=== PATIENT | female | born 1960 | race Caucasian/White ===

== ENCOUNTER 2017-01-30 18:19 | Emergency (ER) | payer MEDICARE, MEDICAID ==
[~2017-01-30] VITALS: Ht 160 cm; Wt 145.3 kg
[~2017-01-30 18:19] MED LIST: ACID1TAB3 PO; ALBU2.5V NEB; ALBU6.7H INH; ALBU90AE INH; AMOX1TAB64 PO; ASPI-496 PO; ATEN25TA PO; AZEL137S4 NAS; BUDE10.2 INH; BUDE8.43 NS; BUPR75TA6 PO; CALC-451 PO; CHOL500050 PO; FERR324T13 PO; FLUT16SP2 INH; FURO20TA3 PO; HYDR-2443 PO; HYDR-3241 PO; ISOS30TA8 PO; ISOSORBIDE MONONITRATE PO; LEVO137T3 PO; LISI40TA PO; MULT-257 PO; NITR0.4T8 SL; OXYC10TA6 PO; OXYC5TAB3 PO; Oxygen INH; POLY255P PO; QUET400T PO; RANI150T4 PO; SERT100T5 PO; SIMV20TA3 PO; ZOLP5TAB6 PO
[2017-01-30 19:31] VITALS: BP 140/92
== END 2017-01-30 19:37 | disposition home or self-care (01) ==
LOC: ED 19:25
DX: H60.311 Diffuse otitis externa, right ear (principal)
CPT/HCPCS: 99283